=== PATIENT | male | born 2000 | race Caucasian/White ===

== ENCOUNTER 2018-08-05 01:05 | Emergency (ER) | payer BC ==
[~2018-08-05] VITALS: Ht 182.9 cm; Wt 72.6 kg
[~2018-08-05 01:05] MED LIST: CLONAZEPAM 1 MG1 M1 PO; LOXAPINE5 MG PO; RITALIN5 MG PO; TYLENOL W/CODEI1 TA2 PO
[2018-08-05 02:19] VITALS: BP 103/67
== END 2018-08-05 02:20 | disposition home or self-care (01) ==
LOC: ER 01:05
DX: F10.129 Alcohol abuse with intoxication, unspecified (principal)